=== PATIENT | female | born 1940 | race Caucasian/White ===

== ENCOUNTER 2016-07-07 06:20 | Day surgery (SDC) | payer BC ==
--- NOTE | ~2016-07-07 | EGD ---
EGD REPORT [facility] [address] [id number] NAME: JOSETTE ARETAGA : [birth year] STATUS : REG [facility] PAT#: [id number] AGE: 75 ADM/REG DATE : 07/07/16 MR#: [id number] REPORT SERV DATE: 07/07/16 DICTATED BY: ELEONORA CORNELL DATE: 07/07/16 REPORT STATUS : Draft TRANSCRIBED BY: [facility] DATE: 07/07/16 Endoscopy Center Patient Name: Josette Arteaga Date of : 1940 Attending MD: ELEONORA CORNELL MD Procedure Date No Time: 07/07/2016 Procedure: Upper GI endoscopy Indications: Dysphagia Referring MD: LIBIA YANG MD Medicines: Monitored Anesthesia Care Complications: No immediate complications. Procedure: Pre-Anesthesia Assessment: - ASA Grade Assessment: II - A patient with mild systemic disease. After obtaining informed consent, the endoscope was passed under direct vision. Throughout the procedure, the patient's blood pressure, pulse, and oxygen saturations were monitored continuously. The GIF [id number] was introduced through the mouth, and advanced to the second part of duodenum. The upper GI endoscopy was accomplished without difficulty. The patient tolerated the procedure well. Findings: The esophagus and gastroesophageal junction were examined with white light. There were esophageal mucosal changes suggestive of Kuo's esophagus. One tongue of salmon-colored mucosa was present from 35 to 36 cm. The maximum longitudinal extent of these esophageal mucosal changes was 1 cm in length. Biopsies were taken with a cold forceps for histology. Diffuse moderately erythematous mucosa without bleeding was found in the gastric body. Biopsies were taken with a cold forceps for histology. The duodenal bulb and 2nd part of the duodenum were normal. The cardia and gastric fundus were normal on retroflexion. 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 Biopsied. - Erythematous mucosa in the gastric body. Biopsied. - Normal duodenal bulb and 2nd part of the duodenum. Recommendation: - Patient has a contact number available for emergencies. The signs and symptoms of potential delayed complications were discussed with the patient. Return to normal activities tomorrow. Written discharge instructions were provided to the patient. EGD REPORT [address] [address] NAME: JOSETTE ARTEAGA : [birth year] STATUS : REG [facility] PAT#: [id number] AGE: 75 ADM/REG DATE : 07/07/16 MR#: [id number] REPORT SERV DATE: 07/07/16 DICTATED BY: ELEONORA CORNELL DATE: 07/07/16 REPORT STATUS : Draft TRANSCRIBED BY: [employer] DATE: 07/07/16 - Continue present medications. - Await pathology results. - Return to GI clinic in 4 weeks. - Follow an antireflux regimen. Procedure Code(s): --- Professional --- 49592, Esophagogastroduodenoscopy, flexible, transoral; with biopsy, single or multiple Diagnosis Code(s): --- Professional --- K22.9, Disease of esophagus, unspecified K31.9, Disease of stomach and duodenum, unspecified R13.10, Dysphagia, unspecified CPT copyright 2013 [employer]. All rights reserved. The codes documented in this report are preliminary and upon controlled atmospheric furnace brazer review may be revised to meet current compliance requirements. ELEONORA CORNELL MD 07/07/2016 7:56 AM This report has been signed electronically. Number of Addenda: 0 Note Initiated On: 07/07/2016 7:34 AM Scope Withdrawal Time 0 hours 0 minutes 0 seconds [address] [id number]
[~2016-07-07 06:20] MED LIST: ASAB PO; CYANO1000T PO; LOP25 PO; NORV5 PO; VITAMIN B-122500 MCG SL
== END 2016-07-07 23:59 | disposition home health service (06) ==
LOC: DMU 06:20
PROVIDERS: Internal Medicine Gastroenterology
PROC: 0DB68ZX Excision of Stomach, Via Natural or Artificial Opening Endoscopic, Diagnostic (ICD-10-PCS; principal; 2016-07-07 08:00)
PROC: 0DB58ZX Excision of Esophagus, Via Natural or Artificial Opening Endoscopic, Diagnostic (ICD-10-PCS; 2016-07-07 08:00)
DX: K29.50 Unspecified chronic gastritis without bleeding (principal); K21.0 Gastro-esophageal reflux disease with esophagitis; Z87.442 Personal history of urinary calculi; Z90.49 Acquired absence of other specified parts of digestive tract; Z98.890 Other specified postprocedural states
CPT/HCPCS: 88305; 88342